=== PATIENT | male | born 1935 | race Caucasian/White ===

== ENCOUNTER → 2018-03-14 | Outpatient (CLI) | payer MEDICARE ==
--- NOTE | 2018-03-14 14:26 | US ---
EXAMINATION TYPE: US scrotum with doppler. Grayscale and color Doppler Duplex imaging performed of t he scrotum. DATE OF EXAM: 03/14/2018 COMPARISON: NONE CLINICAL HISTORY: N45.1 EPIDIDYMITIS. Prostate Cancer 20 years ago. Right side pain. No injury. No swelling. No surgeries. EXAM MEASUREMENTS: TESTICLES: Right Testicle: 4.4x 2.6 x 2.4 cm Left Testicle: 3.9 x 2.4 x 2.1 cm EPIDIDYMIS HEAD: Right Epididymis: 0.7 x 1.0 x 0.8 cm Left Epididymis: 1.0 x 0.8 x 0.6 cm Doppler performed to assess for testicular vascularity; good bilateral color flow and waveforms are s een. There is no evidence of testicular torsion. Presence of hydroceles: small left Presence of varicoceles: no Right epididymis appears heterogenous. Bilateral incidental note of dilated rete testes. IMPRESSION: 1. Slight heterogeneity of the right epididymis may relate to mild epididymitis. 2. Small left hydrocele is incidentally noted.
== END | disposition home or self-care (01) ==
LOC: RADUSWWP 13:35
PROVIDERS: ATTEND Family Medicine
DX: N45.1 Epididymitis (principal)
CPT/HCPCS: 76870; 93975

== ENCOUNTER 2021-03-01 13:33 | Emergency (ER) | payer MEDICARE ==
[2021-03-01] MEDS ORDERED: ACETAMINOPHEN TAB 500 MG TAB PO STA (15:54)
--- NOTE | 2021-03-01 15:54 | ED ---
Recheck HPI - General Chief Complaint: Recheck/Abnormal Lab/Rx Stated Complaint: covid+, wants infusion Time Seen by Provider: 03/01/21 13:53 Source: patient, RN notes reviewed Mode of arrival: ambulatory Limitations: no limitations - History of Present Illness Initial Comments: Patient is an 85-year-old male with history of hypertension, presenting to the emergency department requesting monoclonal antibodies. Patient tested positive for: Yesterday, he started having symptoms 1 week ago. He is complaining of a mild cough and congestion. His is also positive. He denies any chest pain or shortness of breath, no abdominal pain, no nausea or vomiting. He has no further complaints. Upon arrival to the ER, he has a low-grade temperature 99. 8, rest of vitals normal. - Related Data Home Medications Medication Instructions Recorded Confirmed Ascorbic Acid [Vitamin C] 500 mg PO DAILY 03/01/21 03/01/21 Aspirin EC [Ecotrin Low Dose] 162 mg PO HS 03/01/21 03/01/21 Brinzolamide/Brimonidine Tart 1 drop RIGHT EYE BID 03/01/21 03/01/21 [Simbrinza 1%-0.2% Eye Drops] Calcium Citrate/Vitamin D3 1 tab PO DAILY 03/01/21 03/01/21 [Citracal + D Maximum Caplet] Glucos Sul 2Kcl/MSM/Chond/C/Mn 1 cap PO DAILY 03/01/21 03/01/21 [Glucosamine Chondroitin Cap] Latanoprost [Xalatan 0.005%] 1 drop BOTH EYES HS 03/01/21 03/01/21 Metoprolol Tartrate [Lopressor] 50 mg PO DAILY 03/01/21 03/01/21 Multivitamins, Thera [Multivitamin 1 tab PO DAILY 03/01/21 03/01/21 (formulary)] hydroCHLOROthiazide [Hydrodiuril] 12.5 mg PO DAILY 03/01/21 03/01/21 lisinopriL 40 mg PO DAILY 03/01/21 03/01/21 Allergies Allergy/AdvReac Type Severity Reaction Status Date / Time No Known Allergies Allergy Verified 03/01/21 16:09 Review of Systems ROS Statement: Those systems with pertinent positive or pertinent negative responses have been documented in the HPI. ROS Other: All systems not noted in ROS Statement are negative. Past Medical History Past Medical History: Hyperlipidemia, Hypertension History of Any Multi-Drug Resistant Organisms: None Reported Past Surgical History: Heart Catheterization With Stent, Joint Replacement, Orthopedic Surgery Past Psychological History: No Psychological Hx Reported Smoking Status: Never smoker Past Alcohol Use History: Occasional Past Drug Use History: None Reported General Exam - General Exam Comments Initial Comments: GENERAL: Patient is well-developed and well-nourished. Patient is nontoxic and in no acute distress. HEAD: Atraumatic, normocephalic. EYES: Pupils equal round and reactive to light, extraocular movements intact, sclera anicteric, conjunctiva are normal. Eyelids were unremarkable. ENT: Moist mucous membranes. NECK: Normal range of motion, supple without lymphadenopathy or JVD. LUNGS: Unlabored respirations. Breath sounds clear to auscultation bilaterally and equal. No wheezes rales or rhonchi. HEART: Regular rate and rhythm without murmurs, rubs or gallops. ABDOMEN: Soft, nontender, normoactive bowel sounds. MUSCULOSKELETAL: Normal extremities with adequate strength and normal range of motion, no pitting or edema. No clubbing or cyanosis. NEUROLOGICAL: Patient is alert and oriented x 3. Motor and sensory are also intact. Cranial nerves II through XII grossly intact. Symmetrical smile. Normal speech, normal gait. PSYCH: Normal mood, normal affect. SKIN: Warm, Dry, normal turgor, no rashes or lesions noted. Limitations: no limitations Course Vital Signs 03/01/21 03/01/21 14:05 17:03 Temperature 99.8 F H Pulse Rate 79 Respiratory 20 18 Rate Blood Pressure 141/79 O2 Sat by Pulse 97 Oximetry Medical Decision Making - Medical Decision Making Patient is a 85-year-old male with history of hypertension, presenting requesti ng monoclonal antibodies. He tested positive for covid yesterday, symptoms started 1 week ago. He has a cough, mild congestion. He has a slight temperature here, rest of vitals within normal limits. He does qualify for monoclonal antibodies, he received these without adverse side effects. His vital signs remained stable here in the ER. He is stable for discharge. He can follow up with his primary care. Return parameters were discussed with him and he verbalized understanding. Case discussed with Dr. Dawn. Disposition Clinical Impression: COVID-19 Disposition: HOME SELF-CARE Condition: Stable Instructions (If sedation given, give patient instructions): Coronavirus Disease 2019 (COVID-19) Additional Instructions: Please return to the Emergency Department if symptoms worsen or any other concerns. Please take Tylenol and/or Motrin for fever control. Drink lots of fluids. Follow-up with your primary care. Is patient prescribed a controlled substance at d/c from ED?: No Referrals: Darryn Salmon MD [Primary Care Provider] - 1-2 days Time of Disposition: 17:34
[2021-03-01] MEDS ORDERED: SODIUM CHLORIDE 0.9% 50 ML IVPB ONE (16:00)
[2021-03-01] MEDS ORDERED: BAMLANIVIMAB (EUA) 700 MG, ETESEVIMAB (EUA) 1,400 MG in SODIUM CHLORIDE 0.9% 50 ML IVPB ONE (16:00)
[2021-03-01 17:44] VITALS: BP 136/64; PULSE 64; TEMP 98.5
[2021-03-01 18:10] VITALS: RESP 20
== END 2021-03-01 18:09 | disposition home or self-care (01) ==
LOC: EC 13:33
DX: U07.1 COVID-19 (principal); I10 Essential (primary) hypertension; E78.5 Hyperlipidemia, unspecified; Z79.82 Long term (current) use of aspirin
CPT/HCPCS: 99283; 96365; 96361; J3490